=== PATIENT | male | born 1955 | race Caucasian/White ===

== ENCOUNTER → 2018-10-18 | Outpatient (CLI) | payer OTHER ==
[~2018-10-18] MED LIST: OMNIPAQUE 350 MG/ML, 100ML BOTTLE ONE
== END | disposition home or self-care (01) ==
LOC: CFH 13:39
PROVIDERS: ATTEND Family Medicine
DX: I25.10 Atherosclerotic heart disease of native coronary artery without angina pectoris (principal); I10 Essential (primary) hypertension; M47.894 Other spondylosis, thoracic region; M50.30 Other cervical disc degeneration, unspecified cervical region; M25.78 Osteophyte, vertebrae; I77.810 Thoracic aortic ectasia; R05 Cough
CPT/HCPCS: 71275; Q9967

== ENCOUNTER → 2018-10-21 | Outpatient (CLI) | payer OTHER | END | disposition home or self-care (01) | LOC: CFH 15:21 | PROVIDERS: ATTEND Family Medicine | DX: K76.0 Fatty (change of) liver, not elsewhere classified (principal) | CPT/HCPCS: 76700 ==